=== PATIENT | male | born 1995 | race Caucasian/White ===

== ENCOUNTER 2024-06-27 19:56 | Emergency (ER) | payer OTHER, BC, SELFPAY ==
[2024-06-27 20:04] VITALS: BP 138/81; PULSE 68; RESP 20; TEMP 36.7; O2SAT 99; BMI 21.8
--- NOTE | 2024-06-27 20:16 | ED_ITS ---
HPI - General Adult General Chief complaint: Laceration/Wound Stated complaint: laceration - right hand Time Seen by Provider: 06/27/24 20:04 Source: patient Mode of arrival: ambulatory Limitations: no limitations History of Present Illness HPI narrative: 28-year-old male cut his hand on a piece a glass. No other injuries. Tetanus shot updated 2-3 years ago per patient. Related Data Home Medications ?Medication ?Instructions ?Recorded ?Confirmed No Known Home Medications 06/27/24 06/27/24 Allergies Allergy/AdvReac Type Severity Reaction Status Date / Time No Known Drug Allergies Allergy Verified 06/27/24 20:05 Review of Systems Status of ROS: Reports: 6 or more systems reviewed and unremarkable except as noted in History and below [facility] Medical History No significant past medical history Surgical History No significant past surgical history Social History Narrative: . 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 Non-smoker, chews, nicotine pouches. 1 serving of alcohol/day. No illicit drug use. Smoking Status: Never smoker Second hand tobacco smoke exposure: No How often do you have a drink containing alcohol: never AUDIT-C Alcohol total score: 0 Non-prescribed substance use: denies use Exam Narrative: Exam Narrative: Well-nourished well-developed patient in no acute distress. Alert and oriented. Answers questions appropriately. Mood and affect are appropriate. Thoughts are goal oriented and rational. No tangential or magical thinking noted. Patient speaks in full sentences without needing to catch his breath. HEENT: Normocephalic atraumatic. Extraocular muscles are intact. Conjunctivae are moist without any icterus noted. Moist mucous membranes. Extremities: Patient has approximately a 1.5 cm laceration on the palmar surface just proximal to the thumb. Penetrates into the subcutaneous tissue. Const: Vital Signs, click to edit/add: Vital Signs - 24 hr 06/27/24 20:04 Temperature 98.0 F Pulse Rate [Right Pulse Oximeter] 68 Respiratory Rate 20 Blood Pressure [Le ft Upper Arm] 138/81 Pulse Oximetry 99 Oxygen Delivery Me thod Room Air Course Course ED Course: Wound was clean and then anesthetize with 2% lidocaine. Wound was explored and irrigated. Three sutures with 3-0 Ethilon were placed without difficulty. Vital Signs Vital signs: Initial Vital Signs Temperature 98.0 F 06/27/24 20:04 Temperature Source Temporal Artery Scan 06/27/24 20:04 Pulse Rate 68 06/27/24 20:04 Respiratory Rate 20 06/27/24 20:04 Blood Pressure 138/81 06/27/24 20:04 Blood Pressure Mean 100 06/27/24 20:04 Blood Pressure Position Sitting 06/27/24 20:04 Pulse Oximetry 99 06/27/24 20:04 Oxygen Delivery Method Room Air 06/27/24 20:04 Vital Signs Temperature 98.0 F 06/27/24 20:04 Pulse Rate 68 06/27/24 20:04 Respiratory Rate 20 06/27/24 20:04 Blood Pressure 138/81 06/27/24 20:04 Pulse Oximetry 99 06/27/24 20:04 Oxygen Delivery Method Room Air 06/27/24 20:04 Temperature 98.0 F 06/27/24 20:04 Pulse Rate 68 06/27/24 20:04 Respiratory Rate 20 06/27/24 20:04 Blood Pressure 138/81 06/27/24 20:04 Pulse Oximetry 99 06/27/24 20:04 Oxygen Delivery Method Room Air 06/27/24 20:04 Medical Decision Making MDM Narrative Medical decision making narrative: 28-year-old male- laceration to the hand treated per above. Discharge Plan Discharge Clinical Impression: Laceration Patient Disposition: Home, Self-Care Condition: Stable Additional Instructions: Keep wound clean and dry. Do not soak such as taking baths, swimming or doing dishes. Follow-up in approximately 1 week for suture removal with your primary care provider. Watch for signs and symptoms of infection including increasing redness of the area, purulent drainage, or fever. If this occurs follow-up right away with your doctor or return to the ER. Keep covered when at work. Change dressing daily. Prescriptions: No Action No Known Home Medications Follow Up/Referrals: Maite Almonte, DIRECTOR COMMUNITY HE[facility] NURSING, D[employer]NA[employer] REPAIRER [Primary Care Provider] - Stand Alone Forms: [facility] Info Instructions
[2024-06-27] MEDS: lidocaine HCL 2 % MULTIDOSE 20 ML VIAL INJECTION (20:20)
[2024-06-27 20:22] VITALS: BP 132/74; PULSE 70; RESP 20; TEMP 36.7; O2SAT 99
[2024-06-27 20:26] VITALS: BP 132/74; PULSE 70; RESP 20; TEMP 36.7
== END 2024-06-27 20:31 | disposition home or self-care (01) ==
LOC: ED 20:24
PROVIDERS: Emergency Provider Family Medicine; PCP Nurse Practitioner Family
DX: S61.411A Laceration without foreign body of right hand, initial encounter (principal); W25.XXXA Contact with sharp glass, initial encounter
CPT/HCPCS: 12001; 99283; 99284